=== PATIENT | female | born 1975 | race African-American/Black ===

== ENCOUNTER 2019-03-21 14:27 | Emergency (ER) | payer OTHER ==
[~2019-03-21] VITALS: Ht 167.6 cm; Wt 85.0 kg
[2019-03-21] MEDS: SODIUM CHLORIDE 0.9% 1,000 ML IV ONE (14:37)
[2019-03-21 15:09] LABS: BASOPHILS % 0.7 % (0.0-2.0); HEMATOCRIT. 28.9 % (36.0-48.0); HEMOGLOBIN. 9.2 g/dL (12.0-16.0); LYMPHOCYTES % 10.2 % (20.0-50.0); MEAN CORPUSCULAR HEMOGLOBIN 25.4 pg (28.0-32.0); MEAN PLATELET VOLUME 8.5 fl (7.4-10.4); MONOCYTES % 6.8 % (2.0-8.0); NEUTROPHILS % 81.3 % (40.0-76.0); PLATELET 236 x1000/uL (130-400); RED BLOOD CELL COUNT 3.61 mill/uL (4.2-5.4); RED CELL DISTRIBUTION WIDTH 28.6 % (11.6-14.6)
[2019-03-21 15:13] LABS: CHLORIDE 110 mEq/L (98-107)
[2019-03-21 15:14] LABS: PROTHROMBIN TIME 10.6 sec (9.6-11.0)
[2019-03-21 15:23] LABS: B-HCG QUANTITATIVE < 1 mIU/mL (<3)
[2019-03-21 15:47] LABS: PLATELET ESTIMATE NORMAL
[2019-03-21 18:11] LABS: HEMATOCRIT 27.7 % (36.0-48.0); HEMOGLOBIN 8.6 g/dL (12.0-16.0); MEAN CORPUSCULAR VOLUME 80.6 fL (81.0-99.0); PLATELET 227 x1000/uL (130-400); RED BLOOD CELL COUNT 3.43 mill/uL (4.2-5.4); RED CELL DISTRIBUTION WIDTH 28.3 % (11.6-14.6)
[2019-03-21 19:28] LABS: CLARITY URINE CLOUDY (CLEAR); COLOR URINE YELLOW (YELLOW); KETONES URINE TRACE (NEGATIVE); LEUKOCYTE ESTERASE URINE 2+ (NEGATIVE); NITRITE URINE NEGATIVE (NEGATIVE); OCCULT BLOOD URINE 3+ (NEGATIVE); PHENCYCLIDINE URINE SCREEN NEGATIVE (NEGATIVE); PROTEIN URINE 3+ (NEGATIVE); SPECIFIC GRAVITY URINE 1.031 (1.005-1.030)
[2019-03-21 19:30] LABS: *AMPHETAMINES SCREEN URINE NEGATIVE (NEGATIVE); *BARBITURATES SCREEN URINE NEGATIVE (NEGATIVE); *BENZODIAZEPINES SCREEN URINE NEGATIVE (NEGATIVE); *COCAINE SCREEN URINE NEGATIVE (NEGATIVE); CANNABINOID URINE SCREEN NEGATIVE (NEGATIVE); METHADONE URINE SCREEN NEGATIVE (NEGATIVE); OPIATES URINE SCREEN NEGATIVE (NEGATIVE)
[2019-03-21 22:30] VITALS: BP 137/81
== END 2019-03-22 00:09 | disposition left against medical advice (07) ==
LOC: ER 14:27
DX: N93.8 Other specified abnormal uterine and vaginal bleeding (principal); D25.9 Leiomyoma of uterus, unspecified; J45.909 Unspecified asthma, uncomplicated; I10 Essential (primary) hypertension
CPT/HCPCS: 36415; 76856; 80053; 80305; 81003; 81025; 84702; 85025; 85027; 85610; 86850; 86900; 86901; 99284; J7030